=== PATIENT | female | born 1955 | race American Indian/Alaskan Native ===

== ENCOUNTER 2019-12-20 08:44 | Outpatient (CLI) | payer OTHER ==
--- NOTE | 2019-12-20 09:22 | XRay Report ---
XR chest routine 2V INDICATION / CLINICAL INFORMATION: ASTHMA, ANXIETY, PANIC ATTACKS, HBP AND ALLERGIES. COMPARISON: None available. FINDINGS: SUPPORT DEVICES: None. HEART / MEDIASTINUM: No significant abnormality. LUNGS / PLEURA: No significant pulmonary or pleural abnormality. No pneumothorax. ADDITIONAL FINDINGS: No significant additional findings. IMPRESSION: 1. No acute findings. Signer Name: Renzo Mendoza MD Signed: 12/20/2019 9:17 AM Workstation Name: [id number]
== END 2019-12-20 08:45 | disposition home or self-care (01) ==
LOC: XRAY 08:44
PROVIDERS: ATTEND Internal Medicine
DX: J45.909 Unspecified asthma, uncomplicated (principal); I10 Essential (primary) hypertension; F41.9 Anxiety disorder, unspecified; F41.0 Panic disorder [episodic paroxysmal anxiety]
CPT/HCPCS: 71046

== ENCOUNTER 2020-04-06 07:07 | Outpatient (CLI) | payer OTHER | END 2020-04-06 07:08 | disposition home or self-care (01) | LOC: PF 07:07 | PROVIDERS: ATTEND Internal Medicine | DX: J45.909 Unspecified asthma, uncomplicated (principal); I10 Essential (primary) hypertension; F41.0 Panic disorder [episodic paroxysmal anxiety] | CPT/HCPCS: 94010 ==